=== PATIENT | female | born 1955 | race Caucasian/White ===

== ENCOUNTER 2017-01-24 06:50 | Emergency (ER) | payer MEDICARE, OTHER | END 2017-01-24 08:29 | disposition home or self-care (01) | LOC: FER 06:50 | DX: J06.9 Acute upper respiratory infection, unspecified (principal); J44.9 Chronic obstructive pulmonary disease, unspecified; F41.9 Anxiety disorder, unspecified; F32.9 Major depressive disorder, single episode, unspecified; F17.200 Nicotine dependence, unspecified, uncomplicated; Z79.51 Long term (current) use of inhaled steroids; Z79.899 Other long term (current) drug therapy | CPT/HCPCS: 71020; 87804; 87899; 99283 ==

== ENCOUNTER 2017-03-15 14:34 | Inpatient (IN) | payer MEDICARE, OTHER ==
[~2017-03-15] VITALS: Ht 162.6 cm; Wt 98.1 kg
[2017-03-15 16:21] LABS: BASOPHIL 0.4 % (0-2); EOSINOPHIL 0.9 % (0-5); HCT 43.8 % (37.0-47.0); HGB 15.6 g/dl (12.5-16.0); LYMPHOCYTE 14.2 % (15-48); MCH 30.1 pg (25.0-31.0); MCHC 35.6 g/dL (32.0-36.0); MCV 84.6 fL (78.0-100.0); MONOCYTE 12.6 % (0-12); MPV 9.3 fL (6.0-9.5); NEUTROPHIL 71.9 % (41-80); PLT 262 K/uL (150-400); RBC 5.18 M/uL (4.20-5.40); RDW 14.1 % (11.5-14.0); WBC 16.1 K/uL (4.0-10.5)
[2017-03-15 16:45] LABS: ALBUMIN 3.7 g/dL (3.5-5.0); BILIRUBIN - TOTAL 0.8 mg/dL (0.1-1.0); CREATININE 1.1 mg/dL (0.5-1.0); GLOBULIN (CALCULATION) 3.3 g/dL (2.2-4.2)
[2017-03-15 17:35] LABS: LACTIC ACID 1.1 mmol/L (0.5-2.2)
[2017-03-16 05:27] LABS: BASOPHIL 0.5 % (0-2); HCT 40.8 % (37.0-47.0); HGB 14.5 g/dl (12.5-16.0); LYMPHOCYTE 19.9 % (15-48); MCH 30.4 pg (25.0-31.0); MCHC 35.5 g/dL (32.0-36.0); MCV 85.5 fL (78.0-100.0); MPV 9.5 fL (6.0-9.5); NEUTROPHIL 64.6 % (41-80); PLT 248 K/uL (150-400); RBC 4.77 M/uL (4.20-5.40); RDW 14.2 % (11.5-14.0); WBC 9.6 K/uL (4.0-10.5)
[2017-03-16 05:47] LABS: CREATININE 1.2 mg/dL (0.5-1.0); POTASSIUM 4.4 mmol/L (3.5-5.1)
[2017-03-17 05:35] LABS: HGB 14.9 g/dl (12.5-16.0); MCH 30.2 pg (25.0-31.0); MCHC 35.5 g/dL (32.0-36.0); MPV 9.6 fL (6.0-9.5); RBC 4.94 M/uL (4.20-5.40); RDW 13.9 % (11.5-14.0); WBC 8.8 K/uL (4.0-10.5)
[2017-03-17 05:52] LABS: CREATININE 1.1 mg/dL (0.5-1.0); POTASSIUM 5.1 mmol/L (3.5-5.1)
[2017-03-17] MEDS ORDERED: ASPIRIN CHEWABL81 MG PO (14:36)
[2017-03-17] MEDS ORDERED: PRAVACHOL20 MG PO (14:37)
[2017-03-17] MEDS ORDERED: SINGULAIR10 MG PO (14:37)
[2017-03-17] MEDS ORDERED: 24HOUR ALLERGY10 MG PO (14:37)
[2017-03-17] MEDS ORDERED: OS-CAL500 MG PO (14:38)
[2017-03-17] MEDS ORDERED: REMERON15 MG PO (14:38)
[2017-03-17] MEDS ORDERED: VITAMIN D1000 UNI1 PO (14:38)
[2017-03-17] MEDS ORDERED: ADVAIR 250-501 EACH INH (14:39)
[2017-03-17] MEDS ORDERED: VENTOLIN HFA IN18 GM INH (14:39)
[2017-03-17] MEDS ORDERED: VISTARIL50 MG PO (14:40)
[2017-03-17] MEDS ORDERED: NEURONTIN300 MG PO (14:40)
[2017-03-17] MEDS ORDERED: PRISTIQ ER100 MG PO (14:41)
[2017-03-17] MEDS ORDERED: GEODON80 MG PO (14:41)
[2017-03-17] MEDS ORDERED: LAMICTAL100 MG PO (14:42)
[2017-03-17] MEDS ORDERED: SINEQUAN50 MG PO (14:42)
[2017-03-17] MEDS ORDERED: INDERAL LA160 MG PO (14:42)
[2017-03-17] MEDS ORDERED: PROTONIX 40MG T40 MG PO (14:43)
[2017-03-17] MEDS ORDERED: CEFTIN250 MG PO (14:44)
[2017-03-17] MEDS ORDERED: XARELTO15 MG PO (14:44)
== END 2017-03-17 11:55 | disposition home or self-care (01) | DRG 176 ==
LOC: FER 14:34 → FTCU 18:12
PROVIDERS: Emergency Medicine; Internal Medicine; ADMIT Internal Medicine Nephrology
DX: I26.99 Other pulmonary embolism without acute cor pulmonale (principal); I10 Essential (primary) hypertension; I82.611 Acute embolism and thrombosis of superficial veins of right upper extremity; J44.9 Chronic obstructive pulmonary disease, unspecified; F17.210 Nicotine dependence, cigarettes, uncomplicated; Z79.82 Long term (current) use of aspirin; Z79.01 Long term (current) use of anticoagulants; K21.9 Gastro-esophageal reflux disease without esophagitis; Z88.5 Allergy status to narcotic agent; Z88.0 Allergy status to penicillin; Z88.8 Allergy status to other drugs, medicaments and biological substances; F41.8 Other specified anxiety disorders
CPT/HCPCS: 36415; 71010; 71020; 71275; 80048; 80053; 83605; 84484; 85025; 85379; 93005; 93970; 93971; 94640; 96372; J1885; Q9967

== ENCOUNTER → 2021-12-29 | Day surgery (SDC) | payer MEDICARE, OTHER ==
[~2021-12-29] VITALS: Ht 167.6 cm; Wt 83.0 kg
[~2021-12-29] MED LIST: 24HOUR ALLERGY10 MG PO; ACETAMINOPHEN500 M1 PO; ADVAIR 250-501 EACH INH; ALENDRONATE SOD70 MG PO; ASPIRIN CHEWABL81 MG PO; BACLOFEN 10MG T10 MG PO; BACTRIM DS TAB1 EACH PO; BENEFIBER1 EAC1 PO; CARAFATE1 GM PO; CEFTIN250 MG PO; COLACE100 MG PO; DEPAKOTE ER250 MG PO; GEODON80 MG PO; INDERAL LA160 MG PO; LAMICTAL100 MG PO; LEVAQUIN500 MG PO; NAPROXEN500 MG PO; NEURONTIN300 MG PO; NORCO 5-325 TA1 EACH PO; OS-CAL500 MG PO; PALIPERIDONE E1.5 MG PO; PRAVACHOL20 MG PO; PRISTIQ ER100 MG PO; PRISTIQ100 MG PO; PROTONIX 40MG T40 MG PO; PYRIDIUM200 M1 PO; REMERON15 MG PO; SINEQUAN50 MG PO; SINGULAIR10 MG PO; TRAZODONE HCL150 MG PO; ULTRAM50 MG PO; VENTOLIN HFA IN18 GM INH; VICODIN 10/3251 EACH PO; VISTARIL50 MG PO; VITAMIN D1000 UNI1 PO; XANAX0.5 MG PO; XARELTO15 MG PO; ZOFRAN8 MG PO
== END | disposition home or self-care (01) ==
LOC: FAS 13:37
DX: H25.813 Combined forms of age-related cataract, bilateral (principal); I10 Essential (primary) hypertension; Z79.82 Long term (current) use of aspirin; Z88.5 Allergy status to narcotic agent; Z88.0 Allergy status to penicillin; Z88.8 Allergy status to other drugs, medicaments and biological substances; Z91.040 Latex allergy status
CPT/HCPCS: J2250; V2632

== ENCOUNTER 2021-12-31 18:23 | Emergency (ER) | payer MEDICARE, OTHER ==
[~2021-12-31 18:23] MED LIST changes: -BACLOFEN 10MG T10 MG PO
[2021-12-31 19:04] LABS: BASOPHIL 0.8 % (0-2); EOSINOPHIL 1.5 % (0-7); HCT 40.5 % (37.0-47.0); HGB 13.9 g/dl (12.5-16.0); LYMPHOCYTE 40.2 % (15-48); MCH 31.1 pg (25.0-31.0); MCHC 34.3 g/dL (32.0-36.0); MCV 90.6 fL (78.0-100.0); MONOCYTE 10.4 % (0-12); MPV 9.5 fL (6.0-9.5); NEUTROPHIL 46.3 % (41-80); NRBC 0; PLT 201 K/uL (150-400); RBC 4.47 M/uL (4.20-5.40); RDW 12.5 % (11.5-14.0); WBC 8.5 K/uL (4.0-10.5)
[2021-12-31 19:20] LABS: BUN/CREAT RATIO (CALC) 17.9 RATIO; CREATININE 0.84 mg/dL (0.51-0.95); POTASSIUM 4.4 mmol/L (3.5-5.1)
[2021-12-31 19:26] LABS: BILIRUBIN NEGATIVE (NEGATIVE); BLOOD NEGATIVE Ery/uL (NEGATIVE); CLARITY CLEAR (CLEAR); COLOR YELLOW (YELLOW); GLUCOSE (U) NORMAL (NORMAL); LEUKOCYTES NEGATIVE Leu/uL (NEGATIVE); NITRITE NEGATIVE (NEGATIVE); PROTEIN NEGATIVE (NEGATIVE); UROBILINOGEN 0.2 mg/dL (0.2-1.0); pH 7.5 (5.0-9.0)
[2021-12-31] MEDS ORDERED: BACLOFEN 10MG T10 MG PO (19:55)
[2021-12-31] MEDS ORDERED: NAPROXEN500 MG PO (19:55)
== END 2021-12-31 20:27 | disposition home or self-care (01) ==
LOC: FER 18:23
PROVIDERS: Nurse Practitioner Family
DX: M54.50 Low back pain, unspecified (principal); G89.29 Other chronic pain; F17.210 Nicotine dependence, cigarettes, uncomplicated; Z88.0 Allergy status to penicillin; Z88.5 Allergy status to narcotic agent; Z88.8 Allergy status to other drugs, medicaments and biological substances; Z91.040 Latex allergy status
CPT/HCPCS: 36415; 72100; 80048; 81003; 85025; 96372; J1100; J1885

== ENCOUNTER 2022-01-14 12:46 | Emergency (ER) | payer MEDICARE, OTHER ==
[~2022-01-14 12:46] MED LIST changes: +BACLOFEN 10MG T10 MG PO
[2022-01-14 13:36] LABS: EOSINOPHIL 0.3 % (0-7); HCT 44.7 % (37.0-47.0); HGB 14.9 g/dl (12.5-16.0); MCH 31.3 pg (25.0-31.0); MCHC 33.3 g/dL (32.0-36.0); MCV 93.9 fL (78.0-100.0); MONOCYTE 7.2 % (0-12); MPV 9.5 fL (6.0-9.5); NEUTROPHIL 67.8 % (41-80); NRBC 0; PLT 230 K/uL (150-400); RBC 4.76 M/uL (4.20-5.40); WBC 13.5 K/uL (4.0-10.5)
[2022-01-14 14:34] LABS: ALBUMIN 3.3 g/dL (3.4-5.0); BILIRUBIN - TOTAL 0.3 mg/dL (0.2-1.0); BUN/CREAT RATIO (CALC) 20.7 RATIO; CREATININE 1.11 mg/dL (0.51-0.95); GLOBULIN (CALCULATION) 3.7 g/dL; POTASSIUM 4.6 mmol/L (3.5-5.1)
[2022-01-15] MEDS ORDERED: TRAZODONE HCL150 MG PO (15:04)
[2022-01-15] MEDS ORDERED: CARAFATE1 GM PO (15:05)
[2022-01-15] MEDS ORDERED: DEPAKOTE ER250 MG PO (15:05)
[2022-01-15] MEDS ORDERED: PRAVACHOL20 MG PO (15:06)
[2022-01-15] MEDS ORDERED: NEURONTIN300 MG PO (15:07)
[2022-01-15] MEDS ORDERED: XANAX0.5 MG PO (15:07)
[2022-01-15] MEDS ORDERED: FOSAMAX70 MG PO (15:09)
[2022-01-15] MEDS ORDERED: PRISTIQ100 MG PO (15:10)
[2022-01-15] MEDS ORDERED: BENEFIBER1 EAC1 PO (15:12)
[2022-01-15] MEDS ORDERED: COLACE100 MG PO (15:12)
[2022-01-15] MEDS ORDERED: PROTONIX 40MG T40 MG PO (15:13)
[2022-01-15] MEDS ORDERED: D3-200050 MCG PO (15:15)
[2022-01-15] MEDS ORDERED: VENTOLIN HFA18 GM INH (15:18)
[2022-01-15] MEDS ORDERED: ALL DAY ALLERGY10 MG PO (15:21)
[2022-01-15] MEDS ORDERED: SINGULAIR10 MG PO (15:22)
[2022-01-15] MEDS ORDERED: PROPRANOLOL HCL60 M1 PO (15:24)
[2022-01-15] MEDS ORDERED: ASPIRIN EC81 MG PO (15:24)
[2022-01-15] MEDS ORDERED: OS-CAL500 MG PO (15:26)
[2022-01-15] MEDS ORDERED: PREDNISOLONE EYELF (17:57)
== END 2022-01-14 17:25 | disposition home or self-care (01) ==
LOC: FER 12:46
PROVIDERS: Emergency Medicine
DX: R07.89 Other chest pain (principal); J44.9 Chronic obstructive pulmonary disease, unspecified; I10 Essential (primary) hypertension; F17.200 Nicotine dependence, unspecified, uncomplicated; Z88.0 Allergy status to penicillin; Z88.5 Allergy status to narcotic agent; Z88.8 Allergy status to other drugs, medicaments and biological substances; Z91.040 Latex allergy status
CPT/HCPCS: 36415; 71045; 71275; 80053; 83880; 84484; 85025; 85379; 93005; 94640; J7030; Q9967

== ENCOUNTER 2022-01-15 08:02 | Inpatient (IN) | payer MEDICARE, OTHER ==
[~2022-01-15] VITALS: Ht 167.6 cm; Wt 101.8 kg
[2022-01-15 09:08] LABS: BASOPHIL 0.4 % (0-2); EOSINOPHIL 0.2 % (0-7); HCT 41.4 % (37.0-47.0); HGB 13.8 g/dl (12.5-16.0); LYMPHOCYTE 8.1 % (15-48); MCH 31.2 pg (25.0-31.0); MCHC 33.3 g/dL (32.0-36.0); MCV 93.7 fL (78.0-100.0); MONOCYTE 8.2 % (0-12); MPV 9.2 fL (6.0-9.5); NEUTROPHIL 81.7 % (41-80); NRBC 0; PLT 182 K/uL (150-400); RBC 4.42 M/uL (4.20-5.40)
[2022-01-15 09:14] LABS: WBC 24.2 K/uL (4.0-10.5)
[2022-01-15 09:32] LABS: ALBUMIN 3.2 g/dL (3.4-5.0); BILIRUBIN - TOTAL 0.4 mg/dL (0.2-1.0); BUN/CREAT RATIO (CALC) 20.4 RATIO; C-REACTIVE PROTEIN 0.5 mg/dL (<=0.90); CREATININE 0.93 mg/dL (0.51-0.95); DEPAKENE/VALPROIC ACID 53.7 ug/mL (50.0-100.0); GLOBULIN (CALCULATION) 3.6 g/dL; MAGNESIUM 1.9 mg/dL (1.8-2.4); POTASSIUM 4.1 mmol/L (3.5-5.1); TOTAL PROTEIN 6.8 g/dL (6.4-8.2)
[2022-01-15] MEDS ORDERED: TRAZODONE HCL150 MG PO (15:04)
[2022-01-15] MEDS ORDERED: CARAFATE1 GM PO (15:05)
[2022-01-15] MEDS ORDERED: DEPAKOTE ER250 MG PO (15:05)
[2022-01-15] MEDS ORDERED: PRAVACHOL20 MG PO (15:06)
[2022-01-15] MEDS ORDERED: XANAX0.5 MG PO (15:07)
[2022-01-15] MEDS ORDERED: NEURONTIN300 MG PO (15:07)
[2022-01-15] MEDS ORDERED: FOSAMAX70 MG PO (15:09)
[2022-01-15] MEDS ORDERED: PRISTIQ100 MG PO (15:10)
[2022-01-15] MEDS ORDERED: BENEFIBER1 EAC1 PO (15:12)
[2022-01-15] MEDS ORDERED: COLACE100 MG PO (15:12)
[2022-01-15] MEDS ORDERED: PROTONIX 40MG T40 MG PO (15:13)
[2022-01-15] MEDS ORDERED: D3-200050 MCG PO (15:15)
[2022-01-15] MEDS ORDERED: VENTOLIN HFA18 GM INH (15:18)
[2022-01-15] MEDS ORDERED: ALL DAY ALLERGY10 MG PO (15:21)
[2022-01-15] MEDS ORDERED: SINGULAIR10 MG PO (15:22)
[2022-01-15] MEDS ORDERED: PROPRANOLOL HCL60 M1 PO (15:24)
[2022-01-15] MEDS ORDERED: ASPIRIN EC81 MG PO (15:24)
[2022-01-15] MEDS ORDERED: OS-CAL500 MG PO (15:26)
[2022-01-15] MEDS ORDERED: PREDNISOLONE EYELF (17:57)
[2022-01-16 06:11] LABS: BASOPHIL 0.1 % (0-2); EOSINOPHIL 0 % (0-7); HCT 42.7 % (37.0-47.0); HGB 14.2 g/dl (12.5-16.0); LYMPHOCYTE 6.7 % (15-48); MCH 31.1 pg (25.0-31.0); MCHC 33.3 g/dL (32.0-36.0); MCV 93.6 fL (78.0-100.0); MONOCYTE 1.3 % (0-12); MPV 9.6 fL (6.0-9.5); NRBC 0; PLT 209 K/uL (150-400); RBC 4.56 M/uL (4.20-5.40); RDW 13.1 % (11.5-14.0); WBC 24.5 K/uL (4.0-10.5)
[2022-01-16 06:23] LABS: NEUTROPHIL 90.9 % (41-80)
[2022-01-16 06:36] LABS: ALBUMIN 3.2 g/dL (3.4-5.0); ALKALINE PHOSHATASE 56 U/L (46-116); ALT 49 U/L (14-59); AST 26 U/L (15-37); BILIRUBIN - TOTAL 0.6 mg/dL (0.2-1.0); BUN 15 mg/dL (7-18); BUN/CREAT RATIO (CALC) 15.8 RATIO; C-REACTIVE PROTEIN >18.00 mg/dL (<=0.90); CHLORIDE 100 mmol/L (98-107); CO2 (BICARBONATE) 30 mmol/L (21-32); CREATININE 0.95 mg/dL (0.51-0.95); GLOBULIN (CALCULATION) 4.2 g/dL; GLUCOSE 147 mg/dL (74-106); MAGNESIUM 2.2 mg/dL (1.8-2.4); POTASSIUM 4.6 mmol/L (3.5-5.1); TOTAL PROTEIN 7.4 g/dL (6.4-8.2)
[2022-01-17 06:13] LABS: BASOPHIL 0.3 % (0-2); EOSINOPHIL 0.1 % (0-7); HCT 39.7 % (37.0-47.0); HGB 13.1 g/dl (12.5-16.0); LYMPHOCYTE 17.8 % (15-48); MCH 31.1 pg (25.0-31.0); MCV 94.3 fL (78.0-100.0); MONOCYTE 5.7 % (0-12); MPV 9.8 fL (6.0-9.5); NEUTROPHIL 75.1 % (41-80); NRBC 0; PLT 184 K/uL (150-400); RBC 4.21 M/uL (4.20-5.40); RDW 13.2 % (11.5-14.0); WBC 22.8 K/uL (4.0-10.5)
[2022-01-17 06:54] LABS: BUN/CREAT RATIO (CALC) 14.9 RATIO; C-REACTIVE PROTEIN 8.9 mg/dL (<=0.90); CREATININE 0.94 mg/dL (0.51-0.95); MAGNESIUM 2.4 mg/dL (1.8-2.4); POTASSIUM 4.3 mmol/L (3.5-5.1)
[2022-01-18 07:20] LABS: BASOPHIL 0.3 % (0-2); EOSINOPHIL 0 % (0-7); HCT 36.3 % (37.0-47.0); LYMPHOCYTE 16.7 % (15-48); MCH 31.3 pg (25.0-31.0); MCHC 33.1 g/dL (32.0-36.0); MCV 94.8 fL (78.0-100.0); MONOCYTE 6.3 % (0-12); MPV 9.6 fL (6.0-9.5); NEUTROPHIL 75.5 % (41-80); NRBC 0; PLT 174 K/uL (150-400); RBC 3.83 M/uL (4.20-5.40); RDW 13.3 % (11.5-14.0); WBC 17.3 K/uL (4.0-10.5)
[2022-01-18 07:44] LABS: BUN/CREAT RATIO (CALC) 16.8 RATIO; CREATININE 1.07 mg/dL (0.51-0.95); POTASSIUM 4.6 mmol/L (3.5-5.1)
--- NOTE | 2022-01-18 09:03 | NUR ---
PT RESIDES ALONE. SHE IS , BUT . SHE IS INDEPENDENT. IF REQUIRES HH DOES NOT HAVE PREFERENCE.
--- NOTE | 2022-01-19 04:49 | NUR ---
PATIENT REQUESTED IV BE RESTARTED, X 2 ATTEMPTS MADE UNABLE TO OBTAIN NEW SITE. S/L IN RIGHT FOREARM REASSESSED AND HAS GOOD BLOOD RETURN AND FLUSHES WITHOUT DIFFICULTY, PATIENT CONCERNED ABOUT EDEMA IN ARM, NO EDEMA NOTED, REASSURANCE PROVIDED. AGREEABLE TO CONTINUE TO USE CURRENT IV SITE.
[2022-01-19 06:39] LABS: BASOPHIL 0.6 % (0-2); EOSINOPHIL 0.3 % (0-7); HCT 38.8 % (37.0-47.0); HGB 12.6 g/dl (12.5-16.0); MCH 30.7 pg (25.0-31.0); MCHC 32.5 g/dL (32.0-36.0); MCV 94.6 fL (78.0-100.0); MONOCYTE 6.8 % (0-12); MPV 9.5 fL (6.0-9.5); NEUTROPHIL 58.5 % (41-80); NRBC 0; PLT 209 K/uL (150-400); RDW 13.3 % (11.5-14.0); WBC 14.4 K/uL (4.0-10.5)
[2022-01-19 07:12] LABS: BUN/CREAT RATIO (CALC) 14.4 RATIO; CREATININE 1.18 mg/dL (0.51-0.95); POTASSIUM 4.1 mmol/L (3.5-5.1)
[2022-01-19] MEDS ORDERED: FLORANEX TABLE1 EACH PO (10:17)
[2022-01-19] MEDS ORDERED: ANUCORT-HC25 MG PR (10:17)
[2022-01-19] MEDS ORDERED: LEVAQUIN750 MG PO (10:17)
[2022-01-19] MEDS ORDERED: CEFTIN250 MG PO (10:19)
== END 2022-01-19 12:00 | disposition home or self-care (01) | DRG 871 ==
LOC: FER 08:02 → FMS 12:54 → FER 13:45 → FMS 21:28
PROVIDERS: Emergency Medicine; Family Medicine; ADMIT Internal Medicine
DX: A41.9 Sepsis, unspecified organism (principal); J18.1 Lobar pneumonia, unspecified organism; J44.0 Chronic obstructive pulmonary disease with (acute) lower respiratory infection; J44.1 Chronic obstructive pulmonary disease with (acute) exacerbation; E87.2 Acidosis; K52.1 Toxic gastroenteritis and colitis; R65.20 Severe sepsis without septic shock; Z20.822 Contact with and (suspected) exposure to COVID-19; I12.9 Hypertensive chronic kidney disease with stage 1 through stage 4 chronic kidney disease, or unspecified chronic kidney disease; N18.2 Chronic kidney disease, stage 2 (mild); F41.9 Anxiety disorder, unspecified; F32.A Depression, unspecified; F17.210 Nicotine dependence, cigarettes, uncomplicated; K64.9 Unspecified hemorrhoids; T36.95XA Adverse effect of unspecified systemic antibiotic, initial encounter; T47.2X5A Adverse effect of stimulant laxatives, initial encounter; G47.00 Insomnia, unspecified; K21.9 Gastro-esophageal reflux disease without esophagitis; E86.0 Dehydration; E66.9 Obesity, unspecified; Z68.36 Body mass index [BMI] 36.0-36.9, adult; Z86.711 Personal history of pulmonary embolism; Z90.49 Acquired absence of other specified parts of digestive tract; Z98.42 Cataract extraction status, left eye; Z90.711 Acquired absence of uterus with remaining cervical stump; Z98.1 Arthrodesis status; Z88.1 Allergy status to other antibiotic agents; Z88.5 Allergy status to narcotic agent; Z91.040 Latex allergy status; Z88.8 Allergy status to other drugs, medicaments and biological substances; Z79.899 Other long term (current) drug therapy
CPT/HCPCS: 36415; 36600; 71250; 80048; 80053; 80164; 80202; 82803; 83605; 83735; 84145; 84439; 84443; 85025; 86140; 87040; 87070; 87088; 87205; 93005; 94640; 94667; 94668; A4216; J0692; J0696; J1650; J2405; J2543; J2920; J3370; J7030; J7040; J7120; J7512; U0002

== ENCOUNTER → 2022-02-02 | Day surgery (SDC) | payer MEDICARE, OTHER ==
[~2022-02-02] VITALS: Ht 167.6 cm; Wt 96.2 kg
[~2022-02-02] MED LIST changes: +ALL DAY ALLERGY10 MG PO; +ANUCORT-HC25 MG PR; +ASPIRIN EC81 MG PO; +D3-200050 MCG PO; +FLORANEX TABLE1 EACH PO; +FOSAMAX70 MG PO; +LEVAQUIN750 MG PO; +PREDNISOLONE EYELF; +PROPRANOLOL HCL60 M1 PO; +VENTOLIN HFA18 GM INH
== END | disposition home or self-care (01) ==
LOC: FAS 12:23
DX: H25.813 Combined forms of age-related cataract, bilateral (principal); I10 Essential (primary) hypertension; Z79.82 Long term (current) use of aspirin
CPT/HCPCS: J2250

== ENCOUNTER 2022-05-14 12:25 | Emergency (ER) | payer MEDICARE, OTHER | END 2022-05-14 15:45 | disposition home or self-care (01) | LOC: FER 12:25 | DX: S86.911A Strain of unspecified muscle(s) and tendon(s) at lower leg level, right leg, initial encounter (principal); Z28.311 Partially vaccinated for COVID-19; Z88.0 Allergy status to penicillin; Z88.5 Allergy status to narcotic agent; Z88.8 Allergy status to other drugs, medicaments and biological substances; Z91.040 Latex allergy status; Z91.09 Other allergy status, other than to drugs and biological substances; W19.XXXA Unspecified fall, initial encounter | CPT/HCPCS: 73590 ==